=== PATIENT | female | born 1990 | race Caucasian/White ===

== ENCOUNTER 2022-08-24 13:40 | Emergency (ER) | payer BC, SELFPAY ==
[2022-08-24 14:10] VITALS: BP 122/74; PULSE 87; RESP 16; TEMP 36.9; O2SAT 100; BMI 19.6
== END 2022-08-24 16:25 | disposition left against medical advice (07) ==
LOC: ED 16:23
DX: Z53.21 Procedure and treatment not carried out due to patient leaving prior to being seen by health care provider (principal)